=== PATIENT | female | born 1990 | race Caucasian/White ===

== ENCOUNTER 2023-01-07 15:42 | Emergency (ER) | payer OTHER ==
[~2023-01-07] VITALS: Ht 165.1 cm; Wt 88.9 kg
--- OUTSIDE RECORDS SUMMARY | ~2023-01-07 | XMS | Continuity of Care Document ---
Demographics + + + | Address | [address] | | | [place] [address] | + + + | Preferred Language | Unknown | + + + | Marital Status | Never | + + + | Latter Day Affiliation | Unknown | + + + | Race | White | + + + | Ethnic Group | Not or | + + + Author + + + | Author | [facility] | + + + | Organization | [facility] | + + + | Address | [address] | | | [place] [address] | + + + | Phone | | + + + Care Team Providers + + + + | Care Senior Buyer Name | Role | Phone | + + + + Unavailable | Unavailable | + + + + Unavailable | Unavailable | + + + + Allergies and Intolerances + + + + + + | date | description | facility | reaction | severity | + + + + + + | (no date) | Urticaria [facility] | (no reaction) | (no severity) | | [facility] | | | + + + + + + Encounters No information. Functional Status No information. Immunizations No information. Medications No information. Problems + + + + | date | description | facility | + + + + | 2023-01-05 00:00 [facility] | + + + + | 2023-01-05 00:00 | Dehydration | [facility] | + + + + | 2023-01-05 18:51 | VIRAL INFECTION, | [facility] | | | UNSPECIFIED | | + + + + | 2023-01-05 18:51 | DEHYDRATION | [facility] | + + + + | 2023-01-05 18:51 | UNVACCINATED FOR COVID-19 | [facility] | + + + + | 2023-01-05 18:51 | ALLERGY STATUS TO | [facility] | | | SULFONAMIDES STATUS | | + + + + Procedures No information. Results/Labs +--------+--------+ +---------+--------+---------+ | test | date | facility | value | unit | notes | +--------+--------+ +---------+--------+---------+ + + | Result panel 1 | + + + + + +-------+ + + | | 2023-01-05 | [facility] | 8.4 | (missing) | (missing) | | (unavailable | 19[facility]50:07 [facility] | | | | + + + +-------+ + + + + | Result panel 2 | + + + + + +--------+ + + | | 2023-01-05 | [facility] | 66.7 | (missing) | (missing) | | (unavailable | [facility]50:07 [facility] | | | | + + + +--------+ + + + + | Result panel 3 | + + + + + +--------+ + + | | 2023-01-05 | [facility] | 19.0 | (missing) | (missing) | | (unavailable | [facility]50:07 [facility] | | | | + + + +--------+ + + + + | Result panel 4 | + + + + + +--------+ + + | | 2023-01-05 | [facility] | 11.9 | (missing) | (missing) | | (unavailable | [facility]50:07 [facility] | | | | + + + +--------+ + + + + | Result panel 5 | + + + + + +-------+ + + | | 2023-01-05 | [facility] | 1.6 | (missing) | (missing) | | (unavailable | [facility]50:07 [facility] | | | | + + + +-------+ + + + + | Result panel 6 | + + + + + +-------+ + + | | 2023-01-05 | [facility] | 0.8 | (missing) | (missing) | | (unavailable | [facility]50:07 [facility] | | | | + + + +-------+ + + + + | Result panel 7 | + + + + + +--------+ + + | | 2023-01-05 | [facility] | 4.47 | (missing) | (missing) | | (unavailable | [facility]:50:07 [facility] | | | | + + + +--------+ + + + + | Result panel 8 | + + + + + +------+---------+ + | | 2023-01-05 | [facility] | 98 | mg/dL | (missing) | | (unavailable | [facility]:50:07 [facility] | | | | + + + +------+---------+ + + + | Result panel 9 | + + + + + +-----+---------+ + | | 2023-01-05 | [facility] | 8 | mg/dL | (missing) | | (unavailable | [facility]50:07 [facility] | | | | + + + +-----+---------+ + + + | Result panel 10 | + + + + + +--------+---------+ + | | 2023-01-05 | [facility] | 0.77 | mg/dL | (missing) | | (unavailable | [facility]50:07 [facility] | | | | + + + +--------+---------+ + + + | Result panel 11 | + + + + + +--------+ + + | | 2023-01-05 | [facility] | 12.5 | (missing) | (missing) | | (unavailable | [facility]:50:07 [facility] | | | | + + + +--------+ + + + + | Result panel 12 | + + + + + +-------+ + + | | 2023-01-05 | [facility] | 106 | (missing) | (missing) | | (unavailable | [facility]50:07 [facility] | | | | + + + +-------+ + + + + | Result panel 13 | + + + + + +---------+ + + | | 2023-01-05 | [facility] | 10.38 | (missing) | (missing) | | (unavailable | [facility]50:07 [facility] | | | | + + + +---------+ + + + + | Result panel 14 | + + + + + +-------+ + + | | 2023-01-05 | [facility] | 133 | (missing) | (missing) | | (unavailable | [facility]:50:07 [facility] | | | | + + + +-------+ + + + + | Result panel 15 | + + + + + +-------+ + + | | 2023-01-05 | [facility] | 4.1 | (missing) | (missing) | | (unavailable | [facility]50:07 [facility] | | | | + + + +-------+ + + + + | Result panel 16 | + + + + + +------+ + + | | 2023-01-05 | [facility] | 98 | (missing) | (missing) | | (unavailable | 19[facility]50:07 [facility] | | | | + + + +------+ + + + + | Result panel 17 | + + + + + +------+ + + | | 2023-01-05 | [facility] | 28 | (missing) | (missing) | | (unavailable | 19:50:07 [facility] | | | | + + + +------+ + + + + | Result panel 18 | + + + + + +--------+ + + | | 2023-01-05 | [facility] | 11.1 | (missing) | (missing) | | (unavailable | 19:50:07 [facility] | | | | + + + +--------+ + + + + | Result panel 19 | + + + + + +-------+---------+ + | | 2023-01-05 | [facility] | 9.0 | mg/dL | (missing) | | (unavailable | [facility]:50:07 [facility] | | | | + + + +-------+---------+ + + + | Result panel 20 | + + + + + +-------+---------+ + | | 2023-01-05 | [facility] | 1.8 | mg/dL | (missing) | | (unavailable | [facility]:50:07 [facility] | | | | + + + +-------+---------+ + + + | Result panel 21 | + + + + + +-------+ + + | | 2023-01-05 | [facility] | 8.2 | (missing) | (missing) | | (unavailable | [facility]:50:07 [facility] | | | | + + + +-------+ + + + + | Result panel 22 | + + + + + +--------+ + + | | 2023-01-05 | [facility] | 38.6 | (missing) | (missing) | | (unavailable | 19:50:07 [facility] | | | | + + + +--------+ + + + + | Result panel 23 | + + + + + +-------+ + + | | 2023-01-05 | [facility] | 2.9 | (missing) | (missing) | | (unavailable | [facility]:50:07 [facility] | | | | + + + +-------+ + + + + | Result panel 24 | + + + + + +-------+ + + | | 2023-01-05 | [facility] | 5.3 | (missing) | (missing) | | (unavailable | 19:50:07 [facility] | | | | + + + +-------+ + + + + | Result panel 25 | + + + + + +--------+ + + | | 2023-01-05 | [facility] | 0.55 | (missing) | (missing) | | (unavailable | [facility]50:07 [facility] | | | | + + + +--------+ + + + + | Result panel 26 | + + + + + +-------+ + + | | 2023-01-05 | [facility] | 0.4 | (missing) | (missing) | | (unavailable | [facility]50:07 [facility] | | | | + + + +-------+ + + + + | Result panel 27 | + + + + + +------+ + + | | 2023-01-05 | [facility] | 35 | (missing) | (missing) | | (unavailable | 19[facility]50:07 [facility] | | | | + + + +------+ + + + + | Result panel 28 | + + + + + +------+ + + | | 2023-01-05 | [facility] | 62 | (missing) | (missing) | | (unavailable | 19:50:07 [facility] | | | | + + + +------+ + + + + | Result panel 29 | + + + + + +-------+ + + | | 2023-01-05 | [facility] | 123 | (missing) | (missing) | | (unavailable | 19:50:07 [facility] | | | | + + + +-------+ + + + + | Result panel 30 | + + + + + + + + + | | 2023-01-05 | [facility] | NEGATIVE | (missing) | (missing) | | (unavailable | 19:50:07 [facility] | | | | + + + + + + + + + | Result panel 31 | + + + + + + + + + | | 2023-01-05 | [facility] | NEGATIVE | (missing) | (missing) | | (unavailable | 19:50:07 [facility] | | | | + + + + + + + + + | Result panel 32 | + + + + + + + + + | | 2023-01-05 | [facility] | NEGATIVE | (missing) | (missing) | | (unavailable | 19:50:07 [facility] | | | | + + + + + + + + + | Result panel 33 | + + + + + +--------+ + + | | 2023-01-05 | [facility] | 86.3 | (missing) | (missing) | | (unavailable | 19:50:07 [facility] | | | | + + + +--------+ + + + + | Result panel 34 | + + + + + + + + + | | 2023-01-05 | [facility] | NEGATIVE | (missing) | (missing) | | (unavailable | 19:50:07 [facility] | | | | + + + + + + + + + | Result panel 35 | + + + + + + + + + | | 2023-01-05 | [facility] | NEGATIVE | (missing) | (missing) | | (unavailable | 19:50:07 [facility] | | | | + + + + + + + + + | Result panel 36 | + + + + + +--------+ + + | | 2023-01-05 | [facility] | 28.0 | (missing) | (missing) | | (unavailable | 19:50:07 [facility] | | | | + + + +--------+ + + + + | Result panel 37 | + + + + + +--------+ + + | | 2023-01-05 | [facility] | 32.5 | (missing) | (missing) | | (unavailable | 19:50:07 [facility] | | | | + + + +--------+ + + + + | Result panel 38 | + + + + + +--------+ + + | | 2023-01-05 | [facility] | 13.0 | (missing) | (missing) | | (unavailable | 19:50:07 [facility] | | | | + + + +--------+ + + + + | Result panel 39 | + + + + + +-------+ + + | | 2023-01-05 | [facility] | 340 | (missing) | (missing) | | (unavailable | 19:50:07 | [facility] | | | | + + + +-------+ + + + + | Result panel 40 | + + + + + + + + + | | 2023-01-05 | [facility] | YELLOW | (missing) | (missing) | | (unavailable | 21:00:07 | [facility] | | | | + + + + + + + + + | Result panel 41 | + + + + + +---------+ + + | | 2023-01-05 | [facility] | CLEAR | (missing) | (missing) | | (unavailable | 21:00:07 | [facility] | | | | + + + +---------+ + + + + | Result panel 42 | + + + + + + + + + | | 2023-01-05 | [facility] | NEGATIVE | (missing) | (missing) | | (unavailable | 21:00:07 [facility] | | | | + + + + + + + + + | Result panel 43 | + + + + + + + + + | | 2023-01-05 | [facility] | NEGATIVE | (missing) | (missing) | | (unavailable | 21::07 | [facility] | | | | + + + + + + + + + | Result panel 44 | + + + + + + + + + | | 2023-01-05 | [facility] | NEGATIVE | (missing) | (missing) | | (unavailable | 21:00:07 | [facility] | | | | + + + + + + + + + | Result panel 45 | + + + + + +---------+ + + | | 2023-01-05 | [facility] | 1.010 | (missing) | (missing) | | (unavailable | ::07 | [facility] | | | | + + + +---------+ + + + + | Result panel 46 | + + + + + + + + + | | 2023-01-05 | [facility] | NEGATIVE | (missing) | (missing) | | (unavailable | ::07 | [facility] | | | | + + + + + + + + + | Result panel 47 | + + + + + +-------+ + + | | 2023-01-05 | [facility] | 7.0 | (missing) | (missing) | | (unavailable | 21:00:07 | [facility] | | | | + + + +-------+ + + + + | Result panel 48 | + + + + + + + + + | | 2023-01-05 | [facility] | NEGATIVE | (missing) | (missing) | | (unavailable | 21:00:07 | [facility] | | | | + + + + + + + + + | Result panel 49 | + + + + + + + + + | | 2023-01-05 | [facility] | NORMAL | (missing) | (missing) | | (unavailable | 21::07 | [facility] | | | | + + + + + + + + + | Result panel 50 | + + + + + + + + + | | 2023-01-05 | [facility] | NEGATIVE | (missing) | (missing) | | (unavailable | 21::07 | [facility] | | | | + + + + + + + + + | Result panel 51 | + + + + + + + + + | | 2023-01-05 | [facility] | NEGATIVE | (missing) | (missing) | | (unavailable | 21:00:07 | [facility] | | | | + + + + + + + Social History + + + + | date | description | facility | + + + + | 2023-01-05 00:00 | [facility] | + + + + Vital Signs + + + +---------+ | date | measurement | value | units | + + + +---------+ | 2023-01-05 00:00 | BMI | 32.5 | kg/m2 | + + + +---------+ | 2023-01-05 00:00 | BP_diastolic | 68 | mmHg | + + + +---------+ | 2023-01-05 00:00 | BP_systolic | 125 | mmHg | + + + +---------+ | 2023-01-05 00:00 | heart_rate | 81 | /min | + + + +---------+ | 2023-01-05 00:00 | height_metric | 165.1 | cm | + + + +---------+ | 2023-01-05 00:00 | height_standard | 65 | in | + + + +---------+ | 2023-01-05 00:00 | o2_saturation | 96 | % | + + + +---------+ | 2023-01-05 00:00 | respiration_rate | 18 | /min | + + + +---------+ | 2023-01-05 00:00 | temperature_metric | 37 | C | | | | | | + + + +---------+ | 2023-01-05 00:00 | | 98.6 | F | | | temperature_standar | | | | | d | | | + + + +---------+ | 2023-01-05 00:00 | weight_metric | 88.6 | kg | + + + +---------+ | 2023-01-05 00:00 | weight_standard | 195.33 | lb | + + + +---------+"
--- OUTSIDE RECORDS SUMMARY | ~2023-01-07 | XMS | Continuity of Care Document ---
Demographics + + + | Address | [address] | | | [place] [address] | + + + | Preferred Language | Unknown | + + + | Marital Status | Never | + + + | Judaism Affiliation | Unknown | + + + | Race | White | + + + | Ethnic Group | Not or | + + + Author + + + | Author | [facility] | + + + | Organization | [facility] | + + + | Address | [address] | | | [place] [address] | + + + | Phone | | + + + Care Team Providers + + + + | Care Contact Agent Name | Role | Phone | + [...] 2023-01-05 00:00 [facility] | + + + + | 2023-01-05 00:00 | Dehydration | [facility] | + + + + | [...] (missing) | | (unavailable | 19:50:07 | [facility] | | | | | ) | [...] (missing) | | (unavailable | 19:50:07 | [facility] | | | | | ) | [...] | [facility] if ever [facility] | + + + + Vital [...]
--- OUTSIDE RECORDS SUMMARY | 2023-01-07 15:51 | XMS ---
PreManage Notification: MAGDA SIERRA Security Expansion Joint Finisher Events No recent Security Events currently on file CRITERIA MET - [facility] - 2 Visits in 30 Days CARE PROVIDERS -[place]- Dentist: Desk Representative Formerly [facility] PHONE: [phone] Nimesh has no Care Guidelines for this patient. [place] VISIT COUNT (12 MO.) 2 [facility] TOTAL 2 NOTE: Visits indicate total known visits. ED/C VISIT TRACKING (12 MO.) 01/07/2023 15:[address] [facility] TYPE: Emergency COMPLAINT: - FACIAL SWELLING 01/05/2023 18:51 [facility] TYPE: Emergency COMPLAINT: - HEADACHE DIAGNOSES: - Allergy status to sulfonamides - Contact with and (suspected) exposure to COVID-19 - Dehydration - Headache, unspecified - Unvaccinated for COVID-19 - Viral infection, unspecified INPATIENT VISIT TRACKING (12 MO.) No inpatient visits to display in this time frame [email or web address]
[2023-01-07 17:00] LABS: HEMATOCRIT 36.4 % (35.0-50.0)
[2023-01-07 17:02] LABS: BASOPHILS 0.6 % (0-2); EOSINOPHILS 1.2 % (0-6); HEMOGLOBIN 11.8 g/dL (12.0-18.0); LYMPHOCYTES 11.8 % (24-44); MCH 27.9 (27-36); MCHC 32.5 g/dl (30-36); MCV 86.1 fl (81-99); NEUTROPHILS 77.4 % (39-80); PLATELET COUNT 351 K/uL (140-440); RBC 4.23 M/ul (4.3-5.7); RDW 12.4 (10.5-15.0)
[2023-01-07 17:15] LABS: ALBUMIN/GLOBULIN RATIO 0.58 (1.1-2.4); ANION GAP 14.1 (7-21); BILIRUBIN, TOTAL 0.2 ng/dL (0.2-1.0); BUN/CREATININE RATIO 10.86 (6.0-28.6); CALCIUM 9.2 mg/dL (8.5-10.1); CREATININE, SERUM 0.92 mg/dL (0.55-1.02); POTASSIUM 4.1 mmol/L (3.5-5.1); PROTEIN, TOTAL 8.2 g/dL (6.4-8.2)
[2023-01-07 17:18] LABS: LACTIC ACID, BLOOD 0.8 mmol/L (0.4-2.0)
[2023-01-07] MEDS ORDERED: AMOX TR-K CLV1 EAC1 PO (18:29)
[2023-01-07 18:57] VITALS: BP 130/76
[2023-02-02] MEDS ORDERED: PAXLOVID 300-11 EACH PO (15:05)
[2023-02-02] MEDS ORDERED: PREDNISONE20 MG PO (15:05)
[2023-02-02] MEDS ORDERED: VENTOLIN HFA18 GM INH (15:05)
== END 2023-01-07 18:57 | disposition home or self-care (01) ==
LOC: ED 15:42
PROVIDERS: Student in an Organized Health Care Education/Training Program
DX: L73.9 Follicular disorder, unspecified (principal); K04.7 Periapical abscess without sinus; J02.9 Acute pharyngitis, unspecified; R53.83 Other fatigue; J34.89 Other specified disorders of nose and nasal sinuses; Z88.2 Allergy status to sulfonamides
CPT/HCPCS: 36415; 71045; 80053; 83605; 85025; 87040; 96374; 99283-25; A9270; J1100; J1885; J7030

== ENCOUNTER 2024-05-26 01:25 | Emergency (ER) | payer OTHER ==
[~2024-05-26] VITALS: Ht 12.7 cm; Wt 98.4 kg
[~2024-05-26 01:25] MED LIST: AMOX TR-K CLV1 EAC1 PO; METHYLPREDNISOLO4 M1 PO; PAXLOVID 300-11 EACH PO; PREDNISONE20 MG PO; VENTOLIN HFA18 GM INH
[2024-05-26] MEDS ORDERED: SODIUM CHLORIDE 0.9% 1,000 ML IV ONE (02:15)
[2024-05-26] MEDS ORDERED: ACETAMINOPHEN 500 MG TAB PO ONE (02:30)
[2024-05-26 02:48] LABS: BASOPHILS 0.5 % (0-2); EOSINOPHILS 0.5 % (0-6); HEMATOCRIT 43.9 % (35.0-50.0); HEMOGLOBIN 15.2 g/dL (12.0-18.0); LYMPHOCYTES 8.4 % (24-44); MCHC 34.5 g/dl (30-36); MCV 89.9 fl (81-99); MONOCYTES 14.9 % (0-12); NEUTROPHILS 75.7 % (39-80); PLATELET COUNT 209 K/uL (140-440); RBC 4.89 M/ul (4.3-5.7); RDW 13.2 (10.5-15.0)
[2024-05-26 03:03] LABS: ALBUMIN 3.6 g/dL (3.4-5.0); ALBUMIN/GLOBULIN RATIO 0.82 (1.1-2.4); ANION GAP 14.1 (7-21); BILIRUBIN, TOTAL 0.2 ng/dL (0.2-1.0); BUN/CREATININE RATIO 9.41 (6.0-28.6); CALCIUM 8.8 mg/dL (8.5-10.1); CREATININE, SERUM 0.85 mg/dL (0.55-1.02); POTASSIUM 4.1 mmol/L (3.5-5.1)
[2024-05-26 03:06] LABS: LACTIC ACID, BLOOD 0.9 mmol/L (0.4-2.0)
[2024-05-26 03:25] LABS: INFLUENZA B NAA NEGATIVE (NEGATIVE); RESPIRATORY SYNCYTIAL VIR NAA NEGATIVE (NEGATIVE)
[2024-05-26 03:45] LABS: BILIRUBIN, URINE NEGATIVE (negative); BLOOD/HGB, URINE NEGATIVE (Negative); KETONE, URINE NEGATIVE (Negative); LEUK ESTERASE, URINE NEGATIVE (negative); NITRITE, URINE NEGATIVE (negative)
[2024-05-26 04:07] VITALS: BP 124/87
== END 2024-05-26 04:05 | disposition home or self-care (01) ==
LOC: ED 01:25
PROVIDERS: Emergency Medicine
DX: J10.1 Influenza due to other identified influenza virus with other respiratory manifestations (principal); Z88.2 Allergy status to sulfonamides
CPT/HCPCS: 36415; 71045; 80053; 81003; 83605; 84703; 85025; 87502; 96360; 99283-25; A9270; J7030; U0002

== ENCOUNTER 2024-07-15 13:33 | Emergency (ER) | payer OTHER ==
[~2024-07-15] VITALS: Ht 165.1 cm; Wt 99.8 kg
[2024-07-15] MEDS ORDERED: ACETAMINOPHEN 500 MG TAB PO ONE (13:45)
[2024-07-15 14:14] LABS: BASOPHILS 0.7 % (0-2); EOSINOPHILS 1.8 % (0-6); HEMATOCRIT 40.4 % (35.0-50.0); HEMOGLOBIN 13.6 g/dL (12.0-18.0); LYMPHOCYTES 20.4 % (24-44); MCH 30.9 (27-36); MCHC 33.7 g/dl (30-36); MCV 91.9 fl (81-99); MONOCYTES 6.7 % (0-12); NEUTROPHILS 70.4 % (39-80); PLATELET COUNT 250 K/uL (140-440); RDW 13.6 (10.5-15.0)
[2024-07-15 14:33] LABS: ALBUMIN 3.7 g/dL (3.4-5.0); ALBUMIN/GLOBULIN RATIO 1.09 (1.1-2.4); ANION GAP 13.2 (7-21); BILIRUBIN, TOTAL 0.6 mg/dL (0.2-1.0); BUN/CREATININE RATIO 23.28 (6.0-28.6); CALCIUM 9.1 mg/dL (8.5-10.1); CREATININE, SERUM 0.73 mg/dL (0.55-1.02); POTASSIUM 4.2 mmol/L (3.5-5.1); PROTEIN, TOTAL 7.1 g/dL (6.4-8.2)
[2024-07-15 15:30] VITALS: BP 129/98
== END 2024-07-15 15:31 | disposition home or self-care (01) ==
LOC: ED 13:33
PROVIDERS: Emergency Medicine
DX: R56.9 Unspecified convulsions (principal); Z88.2 Allergy status to sulfonamides
CPT/HCPCS: 36415; 80053; 85025; 99284; A9270